=== PATIENT | male | born 1970 | race Caucasian/White ===

== ENCOUNTER 2020-04-26 23:25 | Emergency (ER) | payer MEDICAID ==
[~2020-04-26] VITALS: Ht 167.6 cm; Wt 77.1 kg
[2020-04-26 23:26] VITALS: Ht 167.6 cm; Wt 77.1 kg
[2020-04-27 02:11] LABS: BASOPHIL % 0.8 % (0-2); PLATELET COUNT 160 x10^3mcL (130-400); RED CELL DISTRIBUTION WIDTH 12.9 % (11.5-14.5)
[2020-04-27 02:57] LABS: ALKALINE PHOSPHATASE 74 U/L (46-116); ALT/SGPT 72 U/L (16-63); AST/SGOT 56 U/L (15-37); BILIRUBIN DIRECT 0.25 mg/dL (0.0-0.2); BILIRUBIN TOTAL 0.92 mg/dL (0.20-1.00); CALCIUM 7.6 mg/dL (8.5-10.1); CARBON DIOXIDE 21.8 mmol/L (21-32); CHLORIDE SERUM 103 mmol/L (98-107); GFR1 > 60 mL/min; GLUCOSE SERUM 106 mg/dL (74-106); LIPASE 309 IU/L (73-393); POTASSIUM SERUM 3.3 mmol/L (3.5-5.1); SODIUM SERUM 136 mmol/L (136-145); TOTAL PROTEIN, SERUM 6.8 g/dL (6.4-8.2)
[2020-04-27 03:45] VITALS: BP 125/75
== END 2020-04-27 03:45 | disposition home or self-care (01) ==
LOC: ED 23:25
PROVIDERS: Student in an Organized Health Care Education/Training Program
DX: J12.9 Viral pneumonia, unspecified (principal); E87.6 Hypokalemia; R19.7 Diarrhea, unspecified; R11.0 Nausea
CPT/HCPCS: J7030; Q0092